=== PATIENT | female | born 1990 | race Caucasian/White ===

== ENCOUNTER 2019-04-28 18:03 | Emergency (ER) | payer SELFPAY ==
[~2019-04-28] VITALS: Ht 160 cm; Wt 57.6 kg
[2019-04-28 18:07] VITALS: BP 136/88
[2019-04-28] MEDS ORDERED: IBUPROFEN 600MG TABLET PO ONE (21:15)
[2019-04-28] MEDS ORDERED: HYDROCODONE/APAP 7.5/325MG 1 TAB TABLET PO ONE (21:15)
== END 2019-04-28 23:00 | disposition home or self-care (01) ==
LOC: ER 18:03
DX: S20.212A Contusion of left front wall of thorax, initial encounter (principal); S20.211A Contusion of right front wall of thorax, initial encounter; S09.90XA Unspecified injury of head, initial encounter; M54.5 Low back pain; Z41.1 Encounter for cosmetic surgery; Z98.890 Other specified postprocedural states; V49.88XA Car occupant (driver) (passenger) injured in other specified transport accidents, initial encounter; Y93.89 Activity, other specified; Y92.89 Other specified places as the place of occurrence of the external cause; Y99.8 Other external cause status
CPT/HCPCS: 70450; 71045; 72100; 81025; 99284; Z7610